=== PATIENT | female | born 1965 | race Two or more races ===

== ENCOUNTER 2017-09-19 10:05 | Day surgery (SDC) | payer BC ==
[2017-06-13 09:24] VITALS: BMI 37.8
[2017-09-19] MEDS ORDERED: Bupivacaine HCl 0.25% PF (10 ml) Inj ONE ×2 (12:38→12:39)
[2017-09-19] MEDS ORDERED: Lidocaine 1% Inj (20ml) ONE (12:39)
[2017-09-19] MEDS ORDERED: Lactated Ringer's 1,000 ML IV ONE ×2 (12:45→13:40)
[2017-09-19] MEDS ORDERED: Propofol 10 mg/ml Inj (20 ML) ONE (12:49)
[2017-09-19] MEDS ORDERED: Midazolam 2 MG/2 ML VIAL ONE (12:49)
[2017-09-19] MEDS ORDERED: Lidocaine Hydrochloride 5 ML INJ ONE (12:49)
[2017-09-19] MEDS ORDERED: ceFAZolin IV 1 gm in Dextrose 1 GM/50 ML BAG IVPB ONE (12:49)
[2017-09-19] MEDS ORDERED: Oxycodone/Acetaminophen 5/325 mg Tab PO PRN (13:28)
[2017-09-19] MEDS ORDERED: HYDROmorphone 0.5 mg/0.5 ml ISec IVP PRN (13:51)
[2017-09-19] MEDS ORDERED: HYDROmorphone 0.5 mg/0.5 ml ISec ONE (13:52)
[2017-09-19] MEDS ORDERED: Lactated Ringer's 1,000 ML IV SCH (14:00)
[2017-09-19 16:21] VITALS: RESP 18
[2017-09-19 18:29] VITALS: BP 114/67; PULSE 62; TEMP 98; O2SAT 99
--- NOTE | 2017-09-22 09:05 | OP ---
PROCEDURE DATE: 09/19/2017 PREOPERATIVE DIAGNOSIS: Incarcerated ventral hernia. POSTOPERATIVE DIAGNOSES: Incarcerated ventral hernia. PROCEDURES PERFORMED: 1. Repair of incarcerated ventral hernia. 2. Extensive lysis of adhesions. 3. Repair of serosal injuries, both small and large bowel. 4. Adjacent tissue transfer closure. SURGEON: Bo Muñoz MD ANESTHESIA: General. BLOOD LOSS: 30 mL. POSTOPERATIVE CONDITION: Stable. INDICATIONS FOR SURGERY: This is a 52-year-old female with a history of a painful supraumbilical ventral hernia, now she presents for elective repair. GROSS FINDINGS: There was fascial defect 2 fingerbreadths above the umbilicus which was repaired primarily with Prolene. It was associated with multiple adhesions including omentum and both small and large bowel. These adhesions were taken down excessively prior to the repair. Serosal injuries to both the small and large bowel were repaired with silk. A primary repair was accomplished with Prolene. PROCEDURE: The patient was taken to the operating room, general anesthesia administered. The abdomen was prepped and draped. A transverse incision was made over the hernia and the large hernia sac was dissected free down to its base and transected at its base. Bleeding was controlled, and the hernia sac was removed and the contents of the hernia sac was dissected off the abdominal wall including omentum and both small and large bowel. Serosal injuries were repaired with silk. A mesenteric blood vessel was also repaired. Once there had been inadequate takedown of the adhesions, a primary repair was accomplished with interrupted transverse 0 Prolene sutures. The wound was irrigated with saline, and due to the large potential space, an adjacent tissue transfer closure was performed by widely mobilizing, making counter incisions, and using multiple layers of Monocryl, subcuticular Monocryl, and glue. Approximately 22 cm2 was repaired. The patient tolerated procedure well. Returned to recovery room in stable condition. Bo Muñoz MD
== END 2017-09-19 18:25 | disposition home or self-care (01) ==
LOC: C.SDS 10:05 → MERGE 10:05 → C.SDS 18:25
PROVIDERS: ATTEND Surgery
DX: K43.6 Other and unspecified ventral hernia with obstruction, without gangrene (principal); K66.0 Peritoneal adhesions (postprocedural) (postinfection); K63.1 Perforation of intestine (nontraumatic)
CPT/HCPCS: 44602; 44604; 49561; 49999; J0690; J1170; J2250; J2405; J2704; J3010; J7120